=== PATIENT | male | born 1950 | race Caucasian/White ===

== ENCOUNTER → 2019-07-21 | Outpatient (CLI) | payer MEDICARE, OTHER ==
[2019-07-21 11:30] LABS: APPEARANCE,URINE CLEAR; BILIRUBIN,URINE NEGATIVE (NEGATIVE); COLOR,URINE YELLOW; GLUCOSE, URINE NEGATIVE (NEGATIVE); KETONES,URINE NEGATIVE (NEGATIVE); LEUKOCYTE ESTERASE,URINE NEGATIVE (NEGATIVE); NITRITE,URINE NEGATIVE (NEGATIVE); PROTEIN,URINE NEGATIVE (NEGATIVE); URINE SPECIFIC GRAVITY 1.028
[2019-07-21 11:34] LABS: ABSOLUTE EOSINOPHILS # (AUTO) 0.1 10^3/uL (0.0-0.6); ABSOLUTE LYMPHOCYTES (AUTO) 0.9 10^3/uL (0.5-4.7); ABSOLUTE MONOCYTES (AUTO) 0.4 10^3/uL (0.1-1.4); ABSOLUTE NEUT (AUTO) 2.2 10^3/uL (1.7-8.2); BASOPHILS % (AUTO) 0.5 % (0-2); EOSINOPHILS % (AUTO) 3.1 % (0-6); HEMATOCRIT 39.5 % (37.9-51.0); INTERNATIONAL RATION (INR) 1.98; LYMPHOCYTES % (AUTO) 25.8 % (13-45); MEAN CORPUSCULAR HEMOGLOBIN 32.7 pg (27.0-33.4); MEAN CORPUSCULAR HGB CONC 35.5 g/dL (32.0-36.0); MEAN CORPUSCULAR VOLUME 92 fl (80-97); MONOCYTES % (AUTO) 9.7 % (3-13); PLATELET COUNT 165 10^3/uL (150-450); PROTHROMBIN TIME 22.8 SEC (11.4-15.4); RED BLOOD COUNT 4.29 10^6/uL (4.35-5.55); RED CELL DISTRIBUTION WIDTH 14.3 % (11.5-14.0); SEGMENTED NEUTROPHILS % (AUTO) 60.9 % (42-78); TOTAL CELLS COUNTED % (AUTO) 100 %; WHITE BLOOD COUNT 3.6 10^3/uL (4.0-10.5)
== END ==
LOC: OD 10:38
PROVIDERS: ATTEND Family Medicine
DX: Z51.81 Encounter for therapeutic drug level monitoring (principal); Z79.01 Long term (current) use of anticoagulants
CPT/HCPCS: 36415; 81001; 85025; 85610

== ENCOUNTER 2019-08-15 15:11 | Emergency (ER) | payer MEDICARE, OTHER ==
--- NOTE | 2019-08-15 15:34 | ER Document Report ---
ED Medical Screen (RME) - General Chief Complaint: Fall Injury Stated Complaint: FALL/INJURY Time Seen by Provider: 08/15/19 15:24 Primary Care Provider: MANNY MCFADDEN MD [Primary Care Provider] - Follow up as needed Notes: Patient is a 69-year-old male who presents to the emergency department with a chief complaint of shortness of breath. Last week he was moving a furniture candice and it hit him in the middle of his chest. He states that he had some bruising to the area and continues to have bruising to the left side of his chest. Patient states that he feels short of breath and has been since that incident. Patient is currently on Coumadin and aspirin. Exam: Ecchymosis to left side anterior chest. Tenderness noted. I have greeted and performed a rapid initial assessment of this patient. A comprehensive ED assessment and evaluation of the patient, analysis of test results and completion of medical decision making process will be conducted by an additional ED providers. TRAVEL OUTSIDE OF THE [place] IN LAST 30 DAYS: No - Related Data Allergies/Adverse Reactions: azithromycin Allergy (Verified 08/15/19 15:29) erythromycin base Allergy (Verified 08/15/19 15:29) Penicillins Allergy (Verified 08/15/19 15:29) Home Medications: coumadin. aspirin Past Medical History - Social History Frequency of alcohol use: None Drug Abuse: None Physical Exam - Vital signs Vitals: Temp Pulse Resp BP Pulse Ox 98.1 F 65 18 163/83 H 98 08/15/19 15:23 08/15/19 15:23 08/15/19 15:23 08/15/19 15:23 08/15/19 15:23 Course - Vital Signs Vital signs: Temp Pulse Resp BP Pulse Ox 98.1 F 65 18 163/83 H 98 08/15/19 15:23 08/15/19 15:23 08/15/19 15:23 08/15/19 15:23 08/15/19 15:23 Doctor's Discharge - Discharge Referrals: MANNY MCFADDEN MD [Primary Care Provider] - Follow up as needed
[2019-08-15] MEDS ORDERED: NORMAL SALINE 1000 ML 1,000 ML IV ONE (15:47)
[2019-08-15 15:58] LABS: ABSOLUTE EOSINOPHILS # (AUTO) 0.2 10^3/uL (0.0-0.6); ABSOLUTE MONOCYTES (AUTO) 0.3 10^3/uL (0.1-1.4); ABSOLUTE NEUT (AUTO) 2.3 10^3/uL (1.7-8.2); BASOPHILS % (AUTO) 0.6 % (0-2); EOSINOPHILS % (AUTO) 4.1 % (0-6); HEMOGLOBIN 13.1 g/dL (13.5-17.0); LYMPHOCYTES % (AUTO) 26.4 % (13-45); MEAN CORPUSCULAR HEMOGLOBIN 32.6 pg (27.0-33.4); MEAN CORPUSCULAR HGB CONC 35.4 g/dL (32.0-36.0); MEAN CORPUSCULAR VOLUME 92 fl (80-97); MONOCYTES % (AUTO) 7.8 % (3-13); PLATELET COUNT 205 10^3/uL (150-450); RED BLOOD COUNT 4.02 10^6/uL (4.35-5.55); RED CELL DISTRIBUTION WIDTH 14.7 % (11.5-14.0); SEGMENTED NEUTROPHILS % (AUTO) 61.1 % (42-78); TOTAL CELLS COUNTED % (AUTO) 100 %; WHITE BLOOD COUNT 3.8 10^3/uL (4.0-10.5)
[2019-08-15 16:05] LABS: INTERNATIONAL RATION (INR) 2.06; PARTIAL THROMBOPLASTIN TIME 33.7 SEC (23.5-35.8); PROTHROMBIN TIME 23.5 SEC (11.4-15.4)
[2019-08-15 16:19] LABS: ALBUMIN 4.1 g/dL (3.5-5.0); ALKALINE PHOSPHATASE 86 U/L (38-126); ANION GAP 8 (5-19); ASPARTATE AMINO TRANSFERASE 52 U/L (17-59); BILIRUBIN,DIRECT 0.4 mg/dL (0.0-0.4); BILIRUBIN,TOTAL 1.4 mg/dL (0.2-1.3); BLOOD UREA NITROGEN 21 mg/dL (7-20); CALCIUM 9.1 mg/dL (8.4-10.2); CARBON DIOXIDE 25 mmol/L (22-30); CHLORIDE 109 mmol/L (98-107); GLUCOSE 135 mg/dL (75-110); POTASSIUM 4.2 mmol/L (3.6-5.0); TOTAL PROTEIN 6.9 g/dL (6.3-8.2)
--- NOTE | 2019-08-15 18:09 | RADIOLOGY REPORT (SQ) ---
EXAM DESCRIPTION: CT CHEST WITH COMPLETED DATE/TIME: 08/15/2019 5:50 pm REASON FOR STUDY: chest trauma; on coumadin; SOB COMPARISON: None. TECHNIQUE: CT scan of the chest performed using helical scanning technique with dynamic intravenous contrast injection. Images reviewed with lung, soft tissue and bone windows. Reconstructed coronal and sagittal MPR and MIP images reviewed. All images stored on PACS. All CT scanners at this facility use dose modulation, iterative reconstruction, and/or weight based d osing when appropriate to reduce radiation dose to as low as reasonably achievable (ALARA). [facility]: Dose Right [facility]: CareDose [facility]: Dose Right [facility]: Teradose 4D [facility]: Replenish CONTRAST TYPE AND DOSE: contrast/concentration: Isovue 350.00 mg/ml; Total Contrast Delivered: 80.0 ml; Total Saline Delivered: 55.0 ml RENAL FUNCTION: BUN 24 creatinine 1.44 RADIATION DOSE: CT Rad equipment meets quality standard of care and radiation dose reduction techniq ues were employed. CTDIvol: 22.4 mGy. DLP: 837 mGy-cm. . LIMITATIONS: None. FINDINGS: LUNGS AND PLEURA: Centrilobular emphysematous changes in the upper lobes. No infiltrate, effusion, or mass. HILAR AND MEDIASTINAL STRUCTURES: No identified masses or abnormal nodes. HEART AND VASCULAR STRUCTURES: No aneurysm or dissection. No central pulmonary emboli. No pericardi al effusion. HARDWARE: None in the chest. UPPER ABDOMEN: No significant findings. Limited exam. THYROID AND OTHER SOFT TISSUES: No masses. No adenopathy. BONES: No significant finding. OTHER: No other significant finding. IMPRESSION: Pulmonary emphysema. No acute findings in the thorax. TECHNICAL DOCUMENTATION: JOB ID: [id number] Quality ID # [id number]: Final reports with documentation of one or more dose reduction techniques (e.g., Au tomated exposure control, adjustment of the mA and/or kV according to patient size, use of iterative reconstruction technique) 2010 [employer]- All Rights Reserved Reading location - IP/workstation name: [email or web address]
--- NOTE | 2019-08-15 21:32 | ER Document Report ---
ED General - General Chief Complaint: Fall Injury Stated Complaint: FALL/INJURY Time Seen by Provider: 08/15/19 15:24 Primary Care Provider: MANNY MCFADDEN MD [Primary Care Provider] - Follow up as needed TRAVEL OUTSIDE OF THE [place] IN LAST 30 DAYS: No - Related Data Allergies/Adverse Reactions: azithromycin Allergy (Verified 08/15/19 15:29) erythromycin base Allergy (Verified 08/15/19 15:29) Penicillins Allergy (Verified 08/15/19 15:29) Home Medications: coumadin. aspirin Past Medical History - Social History Smoking Status: Former Smoker Chew tobacco use (# tins/day): No Frequency of alcohol use: None Drug Abuse: None Family History: None - Noncontributory Patient has suicidal ideation: No Patient has homicidal ideation: No Physical Exam - Vital signs Vitals: Temp Pulse Resp BP Pulse Ox 98.1 F 65 18 163/83 H 98 08/15/19 15:23 08/15/19 15:23 08/15/19 15:23 08/15/19 15:23 08/15/19 15:23 - Notes Notes: Patient presents emerged from complaining of pain over the left anterior chest has been going on for the past week and a half. Patient says he was pushing a candice tripped and fell landing over the bar hitting his left anterior chest. At the time. He was out of town but he presents now because of persistent pain and went to make sure he did not have any fractures. Been mild shortness of breath with this. He has not had any fevers or cough nausea vomiting or abdominal pain and no headaches at all. The history is significant for DVT years ago hypertension coronary artery d isease with a stent. Coumadin. Allergies negative history does not smoke Review of systems all systems were reviewed and acutely negative except as in HPI M PHYSICAL EXAMINATION: Vital signs are noted triage note reviewed GENERAL: Well-appearing, well-nourished and in no acute distress. HEAD: Atraumatic, normocephalic. EYES: Pupils equal round and reactive to light, extraocular movements intact, sclera anicteric, conjunctiva are normal. ENT: nares patent, oropharynx clear without exudates. Moist mucous membranes. Nontender NECK: Normal range of motion, supple without lymphadenopathy midline with full range of motion LUNGS: Breath sounds clear to auscultation bilaterally and equal. No wheezes rales or rhonchi. Contusion over the left anterior chest in the midline just ab out the nipple level. There is no crepitus or tenderness over the left lateral chest of the right lateral chest HEART: Regular rate and rhythm without murmurs ABDOMEN: Soft, nontender, normoactive bowel sounds. Spleen is not enlarged. EXTREMITIES no edema and nontender NEUROLOGICAL: No focal neurological deficits. Moves all extremities spontaneously and on command. PSYCH: Normal mood, normal affect. SKIN: Warm, Dry, normal turgor, no rashes or lesions noted.. Course - Re-evaluation Re-evalutation: 08/15/19 21:40 Medical decision making present with blunt chest wall trauma week and a half ago. Negative laboratory studies are unremarkable he looks well and can be discharged home to follow-up for his Coumadin and blood pressure - Vital Signs Vital signs: Temp Pulse Resp BP Pulse Ox 97.9 F 59 L 17 168/82 H 99 08/15/19 21:10 08/15/19 21:10 08/15/19 21:10 08/15/19 21:10 08/15/19 21:10 - Laboratory Result Diagrams: 08/15/19 15:45 08/15/19 15:45 Laboratory results interpreted by me: 08/15/19 08/15/19 08/15/19 15:45 15:45 15:45 WBC 3.8 L RBC 4.02 L Hgb 13.1 L Hct 37.0 L RDW 14.7 H PT 23.5 H Chloride 109 H BUN 21 H Creatinine 1.44 H Est GFR ( Amer) 59 L Est GFR (MDRD) Non-Af 48 L Glucose 135 H Total Bilirubin 1.4 H 08/15/19 21:40 No old laboratory studies for comparison but suspect this is probably his baseline - Diagnostic Test Radiology reviewed: Reports reviewed Discharge - Discharge Clinical Impression: Chest wall contusion Disposition: HOME, SELF-CARE Instructions: Chest Wall Pain ([facility]) Additional Instructions: Please review the discharge instructions You can take Tylenol for pain Return for fever greater than 101 shortness of breath Your family doctor in 1 week to recheck your Coumadin and blood pressure Forms: Elevated Blood Pressure Referrals: MANNY MCFADDEN MD [Primary Care Provider] - Follow up as needed
[2019-08-15 21:44] VITALS: BP 164/81
== END 2019-08-15 21:46 | disposition home or self-care (01) ==
LOC: ER 15:11
DX: S20.212A Contusion of left front wall of thorax, initial encounter (principal); W19.XXXA Unspecified fall, initial encounter; W22.8XXA Striking against or struck by other objects, initial encounter; R06.02 Shortness of breath; I10 Essential (primary) hypertension; I25.10 Atherosclerotic heart disease of native coronary artery without angina pectoris; Z87.891 Personal history of nicotine dependence; Z95.5 Presence of coronary angioplasty implant and graft; Z88.1 Allergy status to other antibiotic agents; Z88.0 Allergy status to penicillin; Z79.01 Long term (current) use of anticoagulants
CPT/HCPCS: 99284; 96360; 36415; 85025; 85610; 85730; 80053; 71260; J7030

== ENCOUNTER → 2019-09-21 | Outpatient (CLI) | payer MEDICARE, OTHER ==
[2019-09-21 10:39] LABS: INTERNATIONAL RATION (INR) 2.85; PROTHROMBIN TIME 30.5 SEC (11.4-15.4)
== END ==
LOC: OD 09:29
PROVIDERS: ATTEND Family Medicine
DX: Z79.01 Long term (current) use of anticoagulants (principal)
CPT/HCPCS: 36415; 85610

== ENCOUNTER 2019-09-27 17:38 | Emergency (ER) | payer MEDICARE, OTHER ==
--- NOTE | 2019-09-27 18:01 | RADIOLOGY REPORT (SQ) ---
EXAM DESCRIPTION: CT HEAD WITHOUT COMPLETED DATE/TIME: 09/27/2019 5:49 pm REASON FOR STUDY: stroke-like symptoms COMPARISON: None. TECHNIQUE: Axial images acquired through the brain without intravenous contrast. Images reviewed wi th bone, brain and subdural windows. Additional sagittal and coronal reconstructions were generated. Images stored on PACS. All CT scanners at this facility use dose modulation, iterative reconstruction, and/or weight based d osing when appropriate to reduce radiation dose to as low as reasonably achievable (ALARA). [facility]: Dose Right [facility]: CareDose [facility]: Dose Right [facility]: Teradose 4D [facility]: [employer] RADIATION DOSE: CT Rad equipment meets quality standard of care and radiation dose reduction techniq ues were employed. CTDIvol: 53.2 mGy. DLP: 991 mGy-cm. mGy. LIMITATIONS: None. FINDINGS: There is no acute intracranial hemorrhage, vascular territorial infarct, extra-axial fluid collection, mass effect or midline shift. There is no effacement of the cerebral sulci or basal sub arachnoid cisterns. The coleman-white matter differentiation is preserved. The caliber of the ventricl es is concordant with the degree of sulcation. The orbits and globes are intact. The paranasal sinuses and the mastoid air cells are clear. There is no fracture of the calvarium. IMPRESSION: No acute intracranial abnormality. If there is persistent concern for an acute CVA carissa elation with MRI is recommended. EVIDENCE OF ACUTE STROKE: NO. COMMENT: Quality ID # 436: Final reports with documentation of one or more dose reduction techniques (e.g., Automated exposure control, adjustment of the mA and/or kV according to patient size, use of iterative reconstruction technique) TECHNICAL DOCUMENTATION: JOB ID: [id number] [facility]- All Rights Reserved Reading location - IP/workstation name: [email or web address]
--- NOTE | 2019-09-27 18:07 | RADIOLOGY REPORT (SQ) ---
EXAM DESCRIPTION: CHEST SINGLE VIEW COMPLETED DATE/TIME: 09/27/2019 5:51 pm REASON FOR STUDY: stroke-like symptoms COMPARISON: CT of the chest from 08/15/2019. EXAM PARAMETERS: NUMBER OF VIEWS: One view. TECHNIQUE: Single frontal radiographic view of the chest acquired. RADIATION DOSE: NA LIMITATIONS: None. FINDINGS: The cardiomediastinal silhouette and pulmonary vasculature are within normal limits. Ther e is no consolidation, pleural effusion or pneumothorax. There is no acute abnormality of the imaged osseous structures. IMPRESSION: No acute cardiopulmonary process. TECHNICAL DOCUMENTATION: JOB ID: [id number] [employer]- All Rights Reserved Reading location - IP/workstation name: [email or web address]
[2019-09-27 18:13] LABS: INTERNATIONAL RATION (INR) 1.87; PROTHROMBIN TIME 21.8 SEC (11.4-15.4)
[2019-09-27 18:14] LABS: PARTIAL THROMBOPLASTIN TIME 30.4 SEC (23.5-35.8)
[2019-09-27] MEDS ORDERED: LORAZEPAM INJ 2 MG/1 ML VIAL IV ONE ×3 (18:23→21:52)
--- NOTE | 2019-09-27 18:27 | ER Document Report ---
ED General <LEXUS DUNHAM Frantz - Last Filed: 09/28/19 02:16> - General Mode of Arrival: Medic Information source: Patient Cannot obtain history due to: Other - Altered mental status with tremor and stuttering of speech on arrival. History was later obtained from his who reports that patient complained of abdominal discomfort today. Patient states he felt he was bloated and and could not swallow even water. Patient was gagging dry heaves and only clear liquid with liquid was draining from his mouth. This went on for a period of time to the point where patient became so irritated that he ended up having a shaking Reiger tremor and stuttering of his speech. At that point family called EMS for transport suspicious that patient may have had a stroke. TRAVEL OUTSIDE OF THE [place] IN LAST 30 DAYS: No - HPI Onset: This afternoon Onset/Duration: Gradual Quality of pain: Achy, Cramping, Fullness, Other - Vital signs on arrival are u ninterpretable as patient was having a tremor mostly of upper extremity and stuttering speech. I think it impacted the pulse rate respiratory rate and the blood pressure that appears to be abnormal. Please see repeat vital signs Severity: Moderate Associated symptoms: Vomiting, Other - Stuttering speech and tremor Similar symptoms previously: No <ROSALIND MARI - Last Filed: 09/28/19 20:01> - General Chief Complaint: S/S of Possible Stroke Stated Complaint: POSSIBLE STROKE Time Seen by Provider: 09/27/19 18:10 Primary Care Provider: MANNY MCFADDEN MD [Primary Care Provider] - Follow up as needed - Related Data Allergies/Adverse Reactions: azithromycin Allergy (Verified 09/28/19 11:50) erythromycin base Allergy (Verified 09/28/19 11:50) Penicillins Allergy (Verified 09/28/19 11:50) Past Medical History - Social History Smoking Status: Never Smoker Frequency of alcohol use: None Family History: None - Noncontributory Patient has suicidal ideation: No Patient has homicidal ideation: No - Past Medical History Cardiac Medical History: Reports: Hx Coronary Artery Disease, Hx Hypertension, Other Past Surgical History: Reports: Hx Abdominal Surgery, Hx Cholecystectomy - Immunizations Immunizations up to date: Yes <ROSALIND MARI - Last Filed: 09/28/19 20:01> Other: History of some type of blood disorder requiring Coumadin. (ROSALIND MARI) Physical Exam - Vital signs Interpretation: Normal, Other - Initial vital signs were influenced by patient's tremor and stuttering speech - General General appearance: Appears well, Alert In distress: Moderate - HEENT Head: Normocephalic, Atraumatic Eyes: Normal Pupils: PERRL Neck: Normal - Respiratory Respiratory status: No respiratory distress Chest status: Nontender Breath sounds: Normal Chest palpation: Normal - Cardiovascular Rhythm: Regular Heart sounds: Normal auscultation Murmur: No - Abdominal Inspection: Normal Distension: No distension, Distended Bowel sounds: Normal Tenderness: Nontender Organomegaly: No organomegaly - Back Back: Normal, Nontender - Extremities General upper extremity: Normal inspection, Nontender, Normal color, Normal ROM, Normal temperature General lower extremity: Normal inspection, Nontender, Normal color, Normal ROM, Normal temperature, Normal weight bearing. No: Bekah's sign - Neurological Neuro grossly intact: Yes Cognition: Normal Orientation: AAOx4 Cortez Coma Scale Eye Opening: Spontaneous Eleni Coma Scale Verbal: Oriented Eleni Coma Scale Motor: Obeys Commands Eleni Coma Scale Total: 15 Speech: Normal Motor strength normal: LUE, RUE, LLE, RLE Sensory: Normal - Psychological Associated symptoms: Normal affect, Normal mood, Other - Once patient was treated with lorazepam 1 mg IV and Reglan 10 mg IV for nausea patient's tremor and stuttering speech resolved. Alert oriented speech is clear and nonfocal neuro exam - Skin Skin Temperature: Warm Skin Moisture: Dry Skin Color: Normal <ROSALIND MARI - Last Filed: 09/28/19 20:01> - Vital signs Vitals: Temp Pulse Resp BP 98.4 F 106 H 24 H 161/138 H 09/27/19 17:49 09/27/19 17:49 09/27/19 17:49 09/27/19 17:49 Course - Laboratory Result Diagrams: 09/27/19 17:30 09/27/19 17:30 <LEXUS DUNHAM - Last Filed: 09/28/19 02:16> - Laboratory Result Diagrams: 09/27/19 17:30 09/27/19 17:30 - Diagnostic Test Radiology reviewed: Image reviewed, Reports reviewed <ROSALIND MARI - Last Filed: 09/28/19 20:01> - Re-evaluation Re-evalutation: 09/27/19 23:49 Care of this gentleman was accepted from Dr. Mari and I have reevaluated patient at this time. He is slightly sleepy from the Ativan that he received earlier. He is otherwise well. His vital signs are stable. He is appropriately oriented and has a nonfocal neurologic exam and no tremors evident at this point. The MRI/MRA of the brain showed mild atheromatous changes in the internal carotid arteries and was otherwise essentially normal and specifically there was no evidence of acute stroke or neoplasm. I reviewed all information in his chart and looks like this man probably had new onset of seizure activity. He has had no evidence of further seizures and nothing objectively to indicate an acute stroke. After reviewing all findings with the family I think observation admission would be appropriate at this time. I have paged the on-call hospitalist Dr. Yoon and we will await his decision on admitting the patient. 09/28/19 00:59 Dr. Yoon has declined admission of this patient because there is no local neurology technical healthcare consultant available. We will try to arrange transfer to [facility]. 09/28/19 02:16 Findings were reviewed with Dr. Burns from the neurology service at [facility] who is excepted the patient for transfer. EMTALA form completed. (LEXUS DUNHAM) 09/27/19 22:31 Patient currently is an MRI scan get an MRI MRA of the brain. Since tremor had been controlled prior to leaving the ED department to go to the MRA scan once patient returns there is blood work to be done including a blood culture x2 TSH urinalysis urine drug screen and a sed rate. So magnesium level. Repeat EKG is needed inasmuch as the first EKG was done when patient had abnormal EKG due to tremors at the time I am transferring care of this patient to Dr. Eugenio Dunham at this time. (ROSALIND MARI) - Vital Signs Vital signs: Temp Pulse Resp BP Pulse Ox 97.7 F 72 13 143/75 H 99 09/28/19 18:20 09/28/19 05:53 09/28/19 19:06 09/28/19 18:01 09/28/19 19:06 - Laboratory Laboratory results interpreted by me: 09/27/19 09/27/19 09/27/19 17:30 17:30 17:30 RDW 14.1 H Seg Neutrophils % 78.8 H PT 21.8 H Creatinine 1.55 H Est GFR ( Amer) 54 L Est GFR (MDRD) Non-Af 44 L Glucose 122 H Total Bilirubin 1.4 H Urine Protein Urine Blood Urine Urobilinogen 09/27/19 23:17 RDW Seg Neutrophils % PT Creatinine Est GFR ( Amer) Est GFR (MDRD) Non-Af Glucose Total Bilirubin Urine Protein 30 H Urine Blood SMALL H Urine Urobilinogen 2.0 H Discharge <LEXUS DUNHAM E - Last Filed: 09/28/19 02:16> <ROSALIND MARI - Last Filed: 09/28/19 20:01> - Discharge Clinical Impression: Gastroenteritis, Tremor, New onset seizure Condition: Good Disposition: Critical Access Hospital Prescriptions: Metoclopramide HCl [Reglan 10 mg Tablet] 10 mg PO ACHS PRN #20 tablet PRN Reason: For Nausea/Vomiting Referrals: MANNY MCFADDEN MD [Primary Care Provider] - Follow up as needed
[2019-09-27] MEDS ORDERED: NORMAL SALINE 1000 ML 1,000 ML IV ONE (18:31)
[2019-09-27] MEDS ORDERED: METOCLOPRAMIDE HCL INJ/PF 10 MG/2 ML SDV IV ONE (18:33)
[2019-09-27 18:35] LABS: ABSOLUTE MONOCYTES (AUTO) 0.4 10^3/uL (0.1-1.4); ABSOLUTE NEUT (AUTO) 5.3 10^3/uL (1.7-8.2); BASOPHILS % (AUTO) 0.3 % (0-2); EOSINOPHILS % (AUTO) 0.7 % (0-6); HEMATOCRIT 44.4 % (37.9-51.0); HEMOGLOBIN 15.8 g/dL (13.5-17.0); LYMPHOCYTES % (AUTO) 14.8 % (13-45); MEAN CORPUSCULAR HEMOGLOBIN 33.2 pg (27.0-33.4); MEAN CORPUSCULAR HGB CONC 35.5 g/dL (32.0-36.0); MEAN CORPUSCULAR VOLUME 94 fl (80-97); MONOCYTES % (AUTO) 5.4 % (3-13); PLATELET COUNT 189 10^3/uL (150-450); RED BLOOD COUNT 4.75 10^6/uL (4.35-5.55); RED CELL DISTRIBUTION WIDTH 14.1 % (11.5-14.0); SEGMENTED NEUTROPHILS % (AUTO) 78.8 % (42-78); TOTAL CELLS COUNTED % (AUTO) 100 %; WHITE BLOOD COUNT 6.8 10^3/uL (4.0-10.5)
[2019-09-27 18:36] LABS: ALBUMIN 4.8 g/dL (3.5-5.0); ALKALINE PHOSPHATASE 62 U/L (38-126); ANION GAP 13 (5-19); ASPARTATE AMINO TRANSFERASE 57 U/L (17-59); BILIRUBIN,DIRECT 0.4 mg/dL (0.0-0.4); BILIRUBIN,TOTAL 1.4 mg/dL (0.2-1.3); BLOOD UREA NITROGEN 19 mg/dL (7-20); CALCIUM 9.5 mg/dL (8.4-10.2); CARBON DIOXIDE 24 mmol/L (22-30); CHLORIDE 107 mmol/L (98-107); CREATINE KINASE 163 U/L (55-170); GLUCOSE 122 mg/dL (75-110); TOTAL PROTEIN 8.2 g/dL (6.3-8.2)
--- NOTE | 2019-09-27 19:05 | RADIOLOGY REPORT (SQ) ---
EXAM DESCRIPTION: ABDOMEN 2 VIEWS COMPLETED DATE/TIME: 09/27/2019 6:48 pm REASON FOR STUDY: abdominal pain/nausea COMPARISON: None. NUMBER OF VIEWS: Two views. TECHNIQUE: Supine and upright radiographic images of the abdomen acquired. LIMITATIONS: None. FINDINGS: FREE AIR: None. No abnormal gas collections. LUNG BASES: Clear. BOWEL GAS PATTERN: Air-fluid levels in nondistended stomach small bowel and colon. This is an abnorm al but nonspecific bowel gas pattern. CALCIFICATIONS: No suspicious calcifications. SOFT TISSUES: No gross mass or suggestion of organomegaly. HARDWARE: Clips right upper quadrant post cholecystectomy. BONES: No acute fracture. No worrisome bone lesions. OTHER: No other significant finding. IMPRESSION: Air-fluid levels in nondistended small bowel, stomach and colon, abnormal but nonspecifi c bowel gas pattern. TECHNICAL DOCUMENTATION: JOB ID: [id number] [employer]- All Rights Reserved Reading location - IP/workstation name: [email or web address]
[2019-09-27 19:11] LABS: CREATINE KINASE MB 2.71 ng/mL (<4.55)
[2019-09-27 19:12] LABS: TROPONIN I < 0.012 ng/mL
[2019-09-27] MEDS ORDERED: FAMOTIDINE INJ/PF 20 MG/2 ML SDV IV ONE (21:18)
[2019-09-27] MEDS ORDERED: DICYCLOMINE HCL 10 MG CAPSULE PO ONE (21:19)
[2019-09-27] MEDS ORDERED: LEVETIRACETAM INJ/PF 500 MG/5 ML SDV IV ONE (21:50)
--- NOTE | 2019-09-27 22:57 | RADIOLOGY REPORT (SQ) ---
EXAM DESCRIPTION: MR BRAIN ANGIOGRAPHY WITHOUT IV CONTRAST COMPLETED DATE/TME: 09/27/2019 21:47 CLINICAL HISTORY: 69 years, Male, altered mental status COMPARISON: None. TECHNIQUE: 364 Images stored on PACS. Axial and 2-D images with 3-D MIPS reconstructions LIMITATIONS: None. FINDINGS: The vertebral basilar system is unremarkable. The left vertebral artery appears dominant. The petrous portions of the internal carotid arteries appear widely patent bilaterally. No MRA evidence for severe stenosis, vascular encasement, or displacement. No MRA evidence for aneurysm or arteriovenous malformation. Mild atheromatous change involving the cavernous portions of the internal carotid arteries bilaterally. IMPRESSION: No MRA evidence for severe stenosis in the brain. Mild atheromatous changes, of the cavernous ICAs bilaterally copyright 2010 [employer]- All Rights Reserved
--- NOTE | 2019-09-27 22:59 | RADIOLOGY REPORT (SQ) ---
EXAM DESCRIPTION: MR BRAIN WITHOUT IV CONTRAST COMPLETED DATE/TME: 09/27/2019 21:44 CLINICAL HISTORY: 69 years, Male, tremor right upper ext/htn COMPARISON: CT from today's date TECHNIQUE: 274 Images stored on PACS. LIMITATIONS: None. FINDINGS: Sagittal midline anatomic structures show an unremarkable appearance to the pituitary and suprasellar regions. The globes are intact. Minor mucosal thickening of the ethmoid air cell anteriorly. Normal flow void in visualized intracranial vessels. The visualized cranial nerve complex these are unremarkable. There is no intra or extra-axial hemorrhage. Diffusion-weighted images are normal, without evidence for acute infarct. Mild diffuse age-appropriate atrophy. Motion artifact. A few foci of increased FLAIR/T2 white matter signal in the periventricular and subcortical regions consistent with sequelae of minor small vessel ischemic change. No mass or midline shift IMPRESSION: Mild age-appropriate atrophy and minor small vessel ischemic change copyright 2010 [employer]- All Rights Reserved
[2019-09-27 23:41] LABS: APPEARANCE,URINE CLEAR; BILIRUBIN,URINE NEGATIVE (NEGATIVE); COLOR,URINE YELLOW; GLUCOSE, URINE NEGATIVE (NEGATIVE); KETONES,URINE NEGATIVE (NEGATIVE); LEUKOCYTE ESTERASE,URINE NEGATIVE (NEGATIVE); NITRITE,URINE NEGATIVE (NEGATIVE); PROTEIN,URINE 30 mg/dL (NEGATIVE); URINE SPECIFIC GRAVITY 1.021
[2019-09-27 23:55] LABS: URINE AMPHETAMINES SCREEN NEGATIVE; URINE BARBITURATES SCREEN NEGATIVE; URINE BENZODIAZEPINES SCREEN NEGATIVE; URINE COCAINE SCREEN NEGATIVE; URINE MARIJUANA (THC) SCREEN NEGATIVE; URINE METHADONE SCREEN NEGATIVE; URINE PHENCYCLIDINE SCREEN NEGATIVE
--- NOTE | 2019-09-28 07:45 | EKG REPORT ---
SEVERITY:- NORMAL ECG - SINUS RHYTHM : Confirmed by: Cyrus Varner MD 28-Sep-2019 07:44:58
--- NOTE | 2019-09-28 07:46 | EKG REPORT ---
SEVERITY:- ABNORMAL ECG - ATRIAL FIBRILLATION, V-RATE 96-146 VERSUS BASELINE TREMOR ARTEFACTS. BORDERLINE INFERIOR Q WAVES NONSPECIFIC T ABNORMALITIES, INFERIOR LEADS BORDERLINE PROLONGED QT INTERVAL : Confirmed by: Cyrus Varner MD 28-Sep-2019 07:45:51
[2019-09-28] MEDS ORDERED: METOCLOPRAMIDE HCL 10 MG TABLET PO PRN (18:00)
[2019-09-28 18:19] VITALS: BP 143/75
[2019-09-28] MEDS ORDERED: METOPROLOL TARTRATE 25 MG TABLET PO SCH (22:00)
[2019-09-28] MEDS ORDERED: SIMVASTATIN 40 MG TABLET PO SCH (22:00)
[2019-09-28] MEDS ORDERED: LOSARTAN POTASSIUM 50 MG TABLET PO SCH (22:00)
[2019-09-28] MEDS ORDERED: WARFARIN SODIUM 5 MG TABLET PO SCH (22:00)
[2019-09-28] MEDS ORDERED: (PENDING PHARMACY ID) (Warfarin Sodium 5 MG) PO SCH (22:00)
[2019-09-29] MEDS ORDERED: (PENDING PHARMACY ID) (Omeprazole Magnesium [Prilosec Otc] 40 MG) PO SCH (06:00)
[2019-09-29] MEDS ORDERED: PANTOPRAZOLE SODIUM 40 MG TABLET.DR PO SCH (06:00)
[2019-09-29] MEDS ORDERED: ASPIRIN 81 MG TABLET, ENT COATED PO SCH (10:00)
[2019-09-29] MEDS ORDERED: OMEGA-3 ACID ETHYL ESTERS 1 GM CAPSULE PO SCH (10:00)
[2019-09-29] MEDS ORDERED: (PENDING PHARMACY ID) (Ubidecarenone [Coq-10] 100 MG) PO SCH (10:00)
[2019-09-29] MEDS ORDERED: (PENDING PHARMACY ID) (Omega-3/Dha/Epa/Fish Oil [Fish Oil 1,000 Mg Softgel] 1,000 MG) PO SCH (10:00)
== END 2019-09-28 19:50 | disposition short-term general hospital (02) ==
LOC: ER 17:38
DX: K52.9 Noninfective gastroenteritis and colitis, unspecified (principal); R25.1 Tremor, unspecified; R56.9 Unspecified convulsions; R10.9 Unspecified abdominal pain; R14.0 Abdominal distension (gaseous); I25.10 Atherosclerotic heart disease of native coronary artery without angina pectoris; I10 Essential (primary) hypertension
CPT/HCPCS: 93005; 96376; 99285; 96361; 96374; 96375; 36415; 87040; 82553; 82550; 83605; 83690; 83735; 84443; 85025; 85652; 85610; 85730; 87077; 80053; 81001; 84484; 87186; 80307; 70551; 70544; 74019; 71045; 70450; 93010; A9270; J2765; J2060; J7030; S0028; J1953; J3490

== ENCOUNTER → 2019-10-07 | Outpatient (CLI) | payer MEDICARE, OTHER ==
[2019-10-07 12:28] LABS: INTERNATIONAL RATION (INR) 2.11
== END ==
LOC: OD 11:20
PROVIDERS: ATTEND Family Medicine
DX: Z51.81 Encounter for therapeutic drug level monitoring (principal); Z79.01 Long term (current) use of anticoagulants
CPT/HCPCS: 36415; 85610

== ENCOUNTER → 2019-11-04 | Outpatient (CLI) | payer MEDICARE, OTHER ==
[2019-11-04 14:40] LABS: ANION GAP 9 (5-19); BLOOD UREA NITROGEN 21 mg/dL (7-20); CALCIUM 9.4 mg/dL (8.4-10.2); CARBON DIOXIDE 27 mmol/L (22-30); CHLORIDE 105 mmol/L (98-107); GLUCOSE 108 mg/dL (75-110); POTASSIUM 4.3 mmol/L (3.6-5.0)
== END ==
LOC: OD 13:29
PROVIDERS: ATTEND Family Medicine
DX: E87.6 Hypokalemia (principal)
CPT/HCPCS: 36415; 80048; 83735

== ENCOUNTER → 2020-03-22 | Outpatient (CLI) | payer MEDICARE, OTHER ==
[2020-03-22 09:23] LABS: APPEARANCE,URINE CLEAR; BILIRUBIN,URINE NEGATIVE (NEGATIVE); COLOR,URINE YELLOW; GLUCOSE, URINE NEGATIVE (NEGATIVE); KETONES,URINE NEGATIVE (NEGATIVE); LEUKOCYTE ESTERASE,URINE NEGATIVE (NEGATIVE); NITRITE,URINE NEGATIVE (NEGATIVE); PROTEIN,URINE NEGATIVE (NEGATIVE); URINE SPECIFIC GRAVITY 1.021; UROBILINOGEN,URINE NEGATIVE mg/dL (<2.0)
[2020-03-22 09:33] LABS: ABSOLUTE EOSINOPHILS # (AUTO) 0.1 10^3/uL (0.0-0.6); ABSOLUTE MONOCYTES (AUTO) 0.4 10^3/uL (0.1-1.4); ABSOLUTE NEUT (AUTO) 1.7 10^3/uL (1.7-8.2); BASOPHILS % (AUTO) 0.4 % (0-2); EOSINOPHILS % (AUTO) 2.9 % (0-6); HEMATOCRIT 37.2 % (37.9-51.0); HEMOGLOBIN 13.6 g/dL (13.5-17.0); LYMPHOCYTES % (AUTO) 31.6 % (13-45); MEAN CORPUSCULAR HGB CONC 36.6 g/dL (32.0-36.0); MEAN CORPUSCULAR VOLUME 93 fl (80-97); MONOCYTES % (AUTO) 12.1 % (3-13); PLATELET COUNT 157 10^3/uL (150-450); RED BLOOD COUNT 4.01 10^6/uL (4.35-5.55); RED CELL DISTRIBUTION WIDTH 14.8 % (11.5-14.0); TOTAL CELLS COUNTED % (AUTO) 100 %; WHITE BLOOD COUNT 3.3 10^3/uL (4.0-10.5)
[2020-03-23 11:34] LABS: ALBUMIN 4.4 g/dL (3.5-5.0); ALKALINE PHOSPHATASE 50 U/L (38-126); ANION GAP 8 (5-19); ASPARTATE AMINO TRANSFERASE 68 U/L (17-59); BILIRUBIN,DIRECT 0.1 mg/dL (0.0-0.4); BILIRUBIN,TOTAL 1.5 mg/dL (0.2-1.3); BLOOD UREA NITROGEN 21 mg/dL (7-20); CALCIUM 9.1 mg/dL (8.4-10.2); CARBON DIOXIDE 26 mmol/L (22-30); CHLORIDE 105 mmol/L (98-107); GLUCOSE 119 mg/dL (75-110); POTASSIUM 4.4 mmol/L (3.6-5.0); TOTAL PROTEIN 7.3 g/dL (6.3-8.2); TRIGLYCERIDES 160 mg/dL (<150)
[2020-03-23 11:44] LABS: DIRECT LDL 59 mg/dL (<100)
== END ==
LOC: OD 08:15
PROVIDERS: ATTEND Family Medicine
DX: E87.6 Hypokalemia (principal); E78.5 Hyperlipidemia, unspecified; I48.0 Paroxysmal atrial fibrillation; Z79.899 Other long term (current) drug therapy
CPT/HCPCS: 36415; 80053; 80061; 81001; 82272; 83735; 84443; 85025

== ENCOUNTER → 2020-06-29 | Outpatient (CLI) | payer MEDICARE, OTHER ==
[2020-06-29 10:05] LABS: ABSOLUTE EOSINOPHILS # (AUTO) 0.1 10^3/uL (0.0-0.6); ABSOLUTE LYMPHOCYTES (AUTO) 1.1 10^3/uL (0.5-4.7); ABSOLUTE MONOCYTES (AUTO) 0.4 10^3/uL (0.1-1.4); ABSOLUTE NEUT (AUTO) 2.1 10^3/uL (1.7-8.2); BASOPHILS % (AUTO) 0.5 % (0-2); EOSINOPHILS % (AUTO) 2.4 % (0-6); HEMATOCRIT 39.4 % (37.9-51.0); HEMOGLOBIN 14.3 g/dL (13.5-17.0); LYMPHOCYTES % (AUTO) 30.3 % (13-45); MEAN CORPUSCULAR HEMOGLOBIN 33.5 pg (27.0-33.4); MEAN CORPUSCULAR HGB CONC 36.3 g/dL (32.0-36.0); MEAN CORPUSCULAR VOLUME 92 fl (80-97); MONOCYTES % (AUTO) 11.1 % (3-13); PLATELET COUNT 149 10^3/uL (150-450); RED BLOOD COUNT 4.28 10^6/uL (4.35-5.55); RED CELL DISTRIBUTION WIDTH 13.9 % (11.5-14.0); SEGMENTED NEUTROPHILS % (AUTO) 55.7 % (42-78); TOTAL CELLS COUNTED % (AUTO) 100 %; WHITE BLOOD COUNT 3.7 10^3/uL (4.0-10.5)
[2020-06-29 10:07] LABS: APPEARANCE,URINE CLEAR; BILIRUBIN,URINE NEGATIVE (NEGATIVE); COLOR,URINE YELLOW; GLUCOSE, URINE NEGATIVE (NEGATIVE); KETONES,URINE NEGATIVE (NEGATIVE); LEUKOCYTE ESTERASE,URINE NEGATIVE (NEGATIVE); NITRITE,URINE NEGATIVE (NEGATIVE); PROTEIN,URINE NEGATIVE (NEGATIVE); URINE SPECIFIC GRAVITY 1.017; UROBILINOGEN,URINE NEGATIVE mg/dL (<2.0)
[2020-06-29 10:29] LABS: ALBUMIN 4.2 g/dL (3.5-5.0); ALKALINE PHOSPHATASE 46 U/L (38-126); ANION GAP 9 (5-19); ASPARTATE AMINO TRANSFERASE 65 U/L (17-59); BILIRUBIN,DIRECT 0.4 mg/dL (0.0-0.4); BILIRUBIN,TOTAL 1.5 mg/dL (0.2-1.3); BLOOD UREA NITROGEN 17 mg/dL (7-20); CARBON DIOXIDE 25 mmol/L (22-30); CHLORIDE 107 mmol/L (98-107); CHOLESTEROL 103.67 mg/dL (0-200); GLUCOSE 110 mg/dL (75-110); POTASSIUM 4.6 mmol/L (3.6-5.0); TOTAL PROTEIN 6.7 g/dL (6.3-8.2); TRIGLYCERIDES 126 mg/dL (<150)
[2020-06-29 10:40] LABS: DIRECT LDL 56 mg/dL (<100)
== END ==
LOC: OD 08:33
PROVIDERS: ATTEND Family Medicine
DX: E78.5 Hyperlipidemia, unspecified (principal); D68.9 Coagulation defect, unspecified; Z79.899 Other long term (current) drug therapy
CPT/HCPCS: 36415; 80053; 80061; 81001; 85025

== ENCOUNTER → 2020-09-24 | Outpatient (CLI) | payer MEDICARE, OTHER ==
[2020-09-24 11:39] LABS: ABSOLUTE EOSINOPHILS # (AUTO) 0.1 10^3/uL (0.0-0.6); ABSOLUTE MONOCYTES (AUTO) 0.4 10^3/uL (0.1-1.4); ABSOLUTE NEUT (AUTO) 2.1 10^3/uL (1.7-8.2); BASOPHILS % (AUTO) 0.6 % (0-2); EOSINOPHILS % (AUTO) 2.1 % (0-6); HEMATOCRIT 36.6 % (37.9-51.0); HEMOGLOBIN 13.5 g/dL (13.5-17.0); LYMPHOCYTES % (AUTO) 26.8 % (13-45); MEAN CORPUSCULAR HEMOGLOBIN 33.9 pg (27.0-33.4); MEAN CORPUSCULAR HGB CONC 36.8 g/dL (32.0-36.0); MEAN CORPUSCULAR VOLUME 92 fl (80-97); MONOCYTES % (AUTO) 10.6 % (3-13); PLATELET COUNT 143 10^3/uL (150-450); RED BLOOD COUNT 3.97 10^6/uL (4.35-5.55); RED CELL DISTRIBUTION WIDTH 14.2 % (11.5-14.0); SEGMENTED NEUTROPHILS % (AUTO) 59.9 % (42-78); TOTAL CELLS COUNTED % (AUTO) 100 %; WHITE BLOOD COUNT 3.6 10^3/uL (4.0-10.5)
[2020-09-24 11:42] LABS: INTERNATIONAL RATION (INR) 2.03
[2020-09-24 12:04] LABS: ALBUMIN 4.3 g/dL (3.5-5.0); ALKALINE PHOSPHATASE 44 U/L (38-126); ANION GAP 8 (5-19); ASPARTATE AMINO TRANSFERASE 61 U/L (17-59); BILIRUBIN,DIRECT 0.2 mg/dL (0.0-0.4); BILIRUBIN,TOTAL 1.7 mg/dL (0.2-1.3); BLOOD UREA NITROGEN 22 mg/dL (7-20); CALCIUM 9.2 mg/dL (8.4-10.2); CARBON DIOXIDE 26 mmol/L (22-30); CHLORIDE 107 mmol/L (98-107); GLUCOSE 125 mg/dL (75-110); POTASSIUM 4.4 mmol/L (3.6-5.0)
== END ==
LOC: OD 10:31
PROVIDERS: ATTEND Family Medicine
DX: Z51.81 Encounter for therapeutic drug level monitoring (principal); Z79.01 Long term (current) use of anticoagulants; Z79.899 Other long term (current) drug therapy
CPT/HCPCS: 36415; 80053; 85025; 85610